=== PATIENT | female | born 1990 | race Asian ===

== ENCOUNTER 2016-04-13 08:21 | Emergency (ER) | payer OTHER ==
[~2016-04-13] VITALS: Ht 157.5 cm; Wt 108.9 kg
[2016-04-13 09:00] VITALS: BP 136/83; TEMP 97.4
== END 2016-04-13 09:50 | disposition home or self-care (01) ==
LOC: ED 08:21
DX: S50.862A Insect bite (nonvenomous) of left forearm, initial encounter (principal); S30.860A Insect bite (nonvenomous) of lower back and pelvis, initial encounter; W57.XXXA Bitten or stung by nonvenomous insect and other nonvenomous arthropods, initial encounter; Y92.009 Unspecified place in unspecified non-institutional (private) residence as the place of occurrence of the external cause
CPT/HCPCS: 99282

== ENCOUNTER 2017-04-14 07:38 | Emergency (ER) | payer OTHER ==
[~2017-04-14] VITALS: Ht 160 cm; Wt 124.7 kg
[2017-04-14 08:16] LABS: PLATELET COUNT 417 K/uL (152-353)
[2017-04-14 09:20] LABS: POTASSIUM 3.8 mmol/L (3.6-5.2); SODIUM 133 mmol/L (136-145)
[2017-04-14 10:57] VITALS: BP 145/90; TEMP 98.9
== END 2017-04-14 10:58 | disposition home or self-care (01) ==
LOC: ED 07:38
DX: R07.89 Other chest pain (principal)
CPT/HCPCS: 36415; 80053; 82550; 82553; 84484; 85027; 93005; 99283

== ENCOUNTER 2020-10-04 09:20 | Outpatient (CLI) | payer OTHER | END 2020-10-04 19:28 | disposition home or self-care (01) | LOC: RAD 09:20 | PROVIDERS: ATTEND Nurse Practitioner Family | DX: Z13.820 Encounter for screening for osteoporosis (principal) ==

== ENCOUNTER 2020-12-28 10:33 | Outpatient (CLI) | payer OTHER | END 2020-12-28 19:36 | disposition home or self-care (01) | LOC: US 10:33 | PROVIDERS: ATTEND Nurse Practitioner Primary Care | DX: R22.32 Localized swelling, mass and lump, left upper limb (principal) ==

== ENCOUNTER 2022-03-17 10:00 | Emergency (ER) | payer OTHER ==
[~2022-03-17] VITALS: Ht 152.4 cm; Wt 136.1 kg
[2022-03-17 10:00] VITALS: TEMP 98.2
[2022-03-17 14:01] VITALS: BP 108/63
== END 2022-03-17 14:13 | disposition home or self-care (01) ==
LOC: ED 10:00
DX: N83.291 Other ovarian cyst, right side (principal); N83.292 Other ovarian cyst, left side
CPT/HCPCS: 81002; 81025; 96360; 96372; 96374; 96375; 99284; J1885; J2270; J2550; Q9963

== ENCOUNTER 2022-03-18 22:50 | Emergency (ER) | payer OTHER ==
[~2022-03-18] VITALS: Ht 152.4 cm; Wt 136.1 kg
[2022-03-18 22:52] VITALS: TEMP 99.1
[2022-03-18 23:35] LABS: PLATELET COUNT 390 K/uL (152-353)
[2022-03-18 23:40] LABS: POTASSIUM 3.8 mmol/L (3.6-5.2)
[2022-03-19 01:50] VITALS: BP 116/55
== END 2022-03-19 01:50 | disposition short-term general hospital (02) ==
LOC: ED 22:50
PROVIDERS: Emergency Medicine
DX: K80.00 Calculus of gallbladder with acute cholecystitis without obstruction (principal)
CPT/HCPCS: 36415; 80053; 82150; 83690; 85007; 85027; 96360; 96365; 96375; 99284; J2270; J2405; J2543